=== PATIENT | female | born 1995 | race Caucasian/White ===

== ENCOUNTER 2021-08-26 12:23 | Emergency (ER) | payer SELFPAY ==
[~2021-08-26] VITALS: Ht 175.3 cm; Wt 182.8 kg
[2021-08-26] MEDS ORDERED: BENZONATATE100 MG PO (14:00)
[2021-08-26] MEDS ORDERED: DOXYCYCLINE HY100 MG PO (14:00)
[2021-08-26] MEDS ORDERED: VENTOLIN HFA18 GM INH (14:00)
== END 2021-08-26 14:59 | disposition home or self-care (01) ==
LOC: ER 12:33
DX: R50.9 Fever, unspecified (principal); J18.9 Pneumonia, unspecified organism; Z20.822 Contact with and (suspected) exposure to COVID-19
CPT/HCPCS: 71045; 99283; U0002

== ENCOUNTER 2024-12-15 13:35 | Emergency (ER) | payer MEDICARE ==
[~2024-12-15] VITALS: Ht 175.3 cm; Wt 180.5 kg
[~2024-12-15 13:35] MED LIST: BENZONATATE100 MG PO; DOXYCYCLINE HY100 MG PO; VENTOLIN HFA18 GM INH
[2024-12-15] MEDS: ONDANSETRON HCL INJ 2MG/ML 2ML 2 MG/ML VIAL IV STA (14:53)
[2024-12-15 16:56] VITALS: PULSE 60; RESP 16; TEMP 97.7; O2SAT 98
== END 2024-12-15 16:56 | disposition home or self-care (01) ==
LOC: FSED 14:15
DX: R10.11 Right upper quadrant pain (principal); K80.20 Calculus of gallbladder without cholecystitis without obstruction; R11.0 Nausea
CPT/HCPCS: 76705; 80048; 80076; 81025; 85025; 96374; 99284; J2405